=== PATIENT | male | born 1985 | race African-American/Black ===

== ENCOUNTER 2022-04-02 09:28 | Inpatient (IN) | payer OTHER ==
[2022-04-02 11:03] LABS: PTT 25.4 sec (22.9-36.1); Prothrombin Time 13.8 sec (12.0-14.7)
[2022-04-02] MEDS ORDERED: hydrALAZINE 20 MG/ML VIAL ONE (11:39)
[2022-04-02] MEDS ORDERED: Dextrose 5% in Water 1,000 ML IV PRN (11:59)
[2022-04-02] MEDS ORDERED: Ondansetron ODT 4 MG TAB PO PRN (11:59)
[2022-04-02] MEDS ORDERED: Ondansetron PF 4 MG/2 ML Vial IVP PRN (11:59)
[2022-04-02] MEDS ORDERED: Dextrose 50% Abboject 50 ML SYRINGE SLOW IVP PRN (11:59)
[2022-04-02] MEDS ORDERED: Acetaminophen 500 MG TAB ONE (12:07)
[2022-04-02 13:01] LABS: Magnesium 2.1 mg/dL (1.6-2.6)
[2022-04-02] MEDS ORDERED: Sodium Chloride 0.9% 1,000 ML IV SCH ×2 (14:00→22:00)
[2022-04-02 14:56] VITALS: BMI 25.4
[2022-04-02 17:34] LABS: Glucose 124 mg/dL (70-105)
[2022-04-02] MEDS: hydrALAZINE 20 MG/ML VIAL SLOW IVP PRN (17:52)
[2022-04-02] MEDS: Famotidine 20 MG TAB PO SCH (20:35)
[2022-04-02] MEDS: Senokot S 8.6-50 MG TAB PO SCH (20:42)
[2022-04-02] MEDS: Acetaminophen 325 MG TAB PO PRN (22:03)
[2022-04-03] MEDS: hydrALAZINE 20 MG/ML VIAL SLOW IVP PRN ×4 (00:09→20:09)
[2022-04-03 07:21] LABS: #Lymphocytes 0.9 thou/uL (1.20-3.40); #Monocytes 0.7 thou/uL (0.11-0.59); #Neutrophils 3.6 thou/uL (1.40-6.50); %Basophils 0.6 % (0.0-1.0); %Eosinophils 0.2 % (0.0-10.0); %Lymphocytes 17.3 % (21.0-51.0); %Monocytes 12.6 % (0.0-10.0); %Neutrophils 69.4 % (42.0-75.0); Hemoglobin 16.2 g/dL (14.0-18.0); Mean Corpuscular HGB CONC 33.5 g/dL (32.0-36.0); Mean Corpuscular Hemoglobin 31.8 pg (27.0-31.0); Mean Corpuscular Volume 94.8 fL (78.0-98.0); Mean Platelet Volume 7.7 fL (7.4-10.4); Platelet Count 254 thou/uL (130-400); RBC Distribution Width 11.9 % (11.5-14.5); Red Blood Cell (RBC) Count 5.09 mill/uL (4.70-6.10); White Blood Cell (WBC) Count 5.2 thou/uL (4.8-10.8)
[2022-04-03 07:35] LABS: Anion Gap 14 mmol/L (10-20); BUN (Urea Nitrogen) 9 mg/dL (8.9-20.6); Calc. Creatinine Clearance 147 mL/min (70-130); Calcium 9.4 mg/dL (7.8-10.44); Carbon Dioxide 23 mmol/L (22-29); Chloride 103 mmol/L (98-107); Estimated GFR 120; Glucose 124 mg/dL (70-105); Potassium 3.6 mmol/L (3.5-5.1); Sodium 136 mmol/L (136-145)
[2022-04-03] MEDS: Acetaminophen 325 MG TAB PO PRN ×2 (07:41→17:55)
[2022-04-03] MEDS: Famotidine 20 MG TAB PO SCH ×2 (07:41→20:09)
[2022-04-03] MEDS: Senokot S 8.6-50 MG TAB PO SCH ×2 (07:41→20:09)
[2022-04-03] MEDS ORDERED: Labetalol HCl 100 MG/20 ML VIAL SLOW IVP PRN (08:23)
[2022-04-03 12:16] LABS: Glucose 178 mg/dL (70-105)
[2022-04-03 17:15] LABS: Glucose 84 mg/dL (70-105)
[2022-04-04 08:09] VITALS: TEMP 98.1
[2022-04-04] MEDS: Senokot S 8.6-50 MG TAB PO SCH (09:17)
[2022-04-04] MEDS: Famotidine 20 MG TAB PO SCH (09:18)
[2022-04-04] MEDS: hydrALAZINE 20 MG/ML VIAL SLOW IVP PRN (11:24)
[2022-04-04] MEDS ORDERED: Amlodipine 10 MG TAB PO SCH (14:00)
[2022-04-04 16:05] VITALS: BP 168/88
[2022-04-05] MEDS ORDERED: Amlodipine 10 MG TAB PO SCH (09:00)
== END 2022-04-04 16:30 | DRG 84 ==
LOC: ERS 09:28 → EEVIPCON 11:59 → CCU 11:59 → SURG B 04-03 10:39
PROVIDERS: ADMIT Specialist; ATTEND Specialist
DX: S06.5X9A Traumatic subdural hemorrhage with loss of consciousness of unspecified duration, initial encounter (principal); J45.909 Unspecified asthma, uncomplicated; F39 Unspecified mood [affective] disorder; K21.9 Gastro-esophageal reflux disease without esophagitis; I10 Essential (primary) hypertension; W18.39XA Other fall on same level, initial encounter; G40.909 Epilepsy, unspecified, not intractable, without status epilepticus; H55.00 Unspecified nystagmus; S00.511A Abrasion of lip, initial encounter; T42.0X5A Adverse effect of hydantoin derivatives, initial encounter; R40.2412 Glasgow coma scale score 13-15, at arrival to emergency department; Q03.9 Congenital hydrocephalus, unspecified; Z98.2 Presence of cerebrospinal fluid drainage device; Z98.890 Other specified postprocedural states; Z79.899 Other long term (current) drug therapy
CPT/HCPCS: 36415; 70450; 80185; 83735; 84100; 85025; 85610; 85730; 96361; 96374; G0390; J0360; J2405; J7050; Q0162